=== PATIENT | female | born 1980 | race Caucasian/White ===

== ENCOUNTER 2018-12-18 21:02 | Emergency (ER) | payer BC ==
[2018-12-18 21:14] VITALS: BP 123/65
--- NOTE | 2018-12-18 21:25 | UC ---
Respiratory Complaint HPI - HPI Summary HPI Summary: Patient has had no active cough of green sputum over the past 3 days. She states that sometimes she coughs so much that she vomits. She has a history of Graves' disease. She states that she can feel some pain behind her right breast. No nausea, no diaphoresis, no radiation of pain. - History of Current Complaint Chief Complaint: UCChestPain Stated Complaint: CHEST PAIN Time Seen by Provider: 12/18/18 21:17 Hx Obtained From: Patient Hx Last Menstrual Period: 11/17/18 ?: No Onset/Duration: Gradual Onset Severity Initially: Mild Severity Currently: Mild Pain Intensity: 5 Aggravating Factors: Deep Breaths Alleviating Factors: Nothing Associated Signs And Symptoms: Positive: Negative - Allergies/Home Medications Allergies/Adverse Reactions: Allergies Allergy/AdvReac Type Severity Reaction Status Date / Time No Known Allergies Allergy Verified 09/19/17 15:43 PMH/Surg Hx/FS Hx/Imm Hx Previously Healthy: Yes Endocrine History: Thyroid Disease - Graves' disease Cardiovascular History: Other - Irregular heart rate from Graves' disease. - Surgical History Surgical History: Yes Surgery Procedure, Year, and Place: GALLBLADDER. ESSURE - Family History Known Family History: Positive: Non-Contributory - Social History Alcohol Use: None Substance Use Type: None Smoking Status (MU): Light Every Day Tobacco Smoker Review of Systems All Other Systems Reviewed And Are Negative: Yes Respiratory: Positive: Cough - Productive cough of green sputum. Gastrointestinal: Positive: Vomiting - Patient vomited several times today. Is Patient Immunocompromised?: No Physical Exam Triage Information Reviewed: Yes Appearance: Well-Appearing, No Pain Distress, Well-Nourished Vital Signs: Initial Vital Signs Temp 98.0 F 12/18/18 21:05 Pulse 108 12/18/18 21:05 Resp 16 12/18/18 21:05 BP 123/65 12/18/18 21:05 Pulse Ox 98 12/18/18 21:05 Vital Signs Reviewed: Yes Eye Exam: Normal ENT Exam: Normal Neck exam: Normal Respiratory Exam: Normal Cardiovascular Exam: Normal Abdominal Exam: Normal Bowel Sounds: Positive: Present Musculoskeletal Exam: Normal Neurological Exam: Normal Psychological Exam: Normal Skin Exam: Normal Respiratory Course/Dx - Course Course Of Treatment: Chest x-ray:Possible infiltrate as read by myself and Dr. Servin. Zithromax 500 mg was given here and a prescription sent to the pharmacy to fill tomorrow. - Differential Dx/Diagnosis Provider Diagnosis: Pneumonia Discharge - Sign-Out/Discharge Documenting (check all that apply): Patient Departure All imaging exams completed and their final reports reviewed: No Studies - Discharge Plan Condition: Fair Disposition: HOME Prescriptions: Azithromycin TAB* [Zithromax TAB (Z-TSERING) 250 mg #6 tabs] 250 mg PO DAILY 4 Days #4 tab Patient Education Materials: Pneumonia (ED) Referrals: Yady Rodriguez MD [Primary Care Provider] - Additional Instructions: Increase fluids, fill your prescription tomorrow, follow-up with your primary care provider if no improvement in 3 or 4 days. - Billing Disposition and Condition Condition: FAIR Disposition: Home - Attestation Statements Provider Attestation: Per institutional requirements, I have reviewed the chart, however, I was not consulted specifically or made aware of this patient by the midlevel provider. I did not personally evaluate, interact with , or disposition this patient.
[2018-12-18] MEDS ORDERED: Azithromycin TAB* 250 MG PO ONE (22:14)
== END 2018-12-18 22:30 | disposition home or self-care (01) ==
LOC: UCCORT 21:02
DX: J18.9 Pneumonia, unspecified organism (principal); F17.200 Nicotine dependence, unspecified, uncomplicated
CPT/HCPCS: 71046; 93005; 99212; A9270-GY; G0463